=== PATIENT | female | born 1940 | race Caucasian/White ===

== ENCOUNTER 2019-06-06 10:08 | Outpatient (CLI) | payer OTHER, SELFPAY ==
--- NOTE | 2019-06-06 10:24 | ECHO_ITS ---
Patient Info Name: Sapna Parra Age: 78 years : 1940 Gender: Female Ht: 66 in Wt: 160 lbs BSA: 1.85 m2 HR: 71 bpm BP: 154 / 76 mmHg Technical Quality: Poor Exam Date: 06/06/2019 10:28 AM Exam Location: [facility] Patient Status: Outpatient Admit Date: 06/06/2019 Staff Ordering Physician: Pat Tipton MD [employer] Customer Service: Lamar Andres RDCS Attending Provider: Pat Tipton MD Referring Physician: Saeed THURSTON; Exam Type: CA echo dop color flow w con Study Info Indications R94.31 - Abnormal electrocardiogram ECG EKG Strain analysis performed. Complete two-dimensional, color flow and Doppler transthoracic echocardiogram is performed with contrast to opacify the left ventrical and to improve the deliniation of the left ventrical endocarial boarders. Contrast/Agitated Saline Contrast/Ag. Saline: Definity Amount: 10.00 ml IV Access Condition: patent with no signs of infiltration New IV Access: Antecubital Space and Left Site Condition: No extravasation and Site dressing applied History/Risk Factors Hypertension: No Dyslipidemia: No Congenital Heart Disease (CHD): No Peripheral Arterial Disease (PAD): No Myocardial Infarction (MD): No Chronic Lung Disease: No Obesity: No Renal Disease: No Coronary Artery Disease (CAD) No Congestive Heart Failure (CHF): No Cardiomyopathy/LV Systolic Dysfunction: No Diabetes Mellitus: No COPD: No Tobacco Use: Never Cerebrovascular Disease: No Family History: Coronary Artery Disease DVT Treatment: Apixaban Deep Vein Thrombosis (DVT): None Dialysis: None Frailty Scale (CSHA): 3: Managing Well Cardiac Arrest: No Prior Interventions Pacemaker: No PCI: No CABG: No Valve Surgery: No ICD: No PV Intervention: None Heart Transplant: No Summary 1. Technically suboptimal study due to poor sonographic images. Therefore, cannot assess regional wall motion abnormality. 2. Left ventricular chamber dimension is moderately enlarged. 3. Definity contrast administered did not improve wall motion interpretation. 4. Left ventricular systolic function is moderately reduced, estimated at 35-40%. 5. There is moderately increased left ventricular wall thickness. 6. The left ventricular diastolic function is abnormal. 7. E/e' 22 is elevated. 8. Left atrial chamber dimension is moderately enlarged. 9. Right atrial chamber dimension is moderately enlarged. 10. There is mild aortic valve sclerosis. 11. There is mild tricuspid valve regurgitation. 12. No pulmonary hypertension, estimated pulmonary arterial systolic pressure is 33 mmHg. Left Ventricle E/e' 22 is elevated. Technically suboptimal study due to poor sonographic images. Therefore, cannot assess regional wall motion abnormality. Definity contrast administered did not improve wall motion interpretation. Left ventricular chamber dimension is moderately enlarged. Left ventricular systolic function is moderately reduced, estimated at 35-40%. There is moderately increased left ventricular wall thickness. The left ventricular diastolic function is abnormal. Right Ventricle Right ventricular chamber dimension is normal. Right ventricular systolic function is normal. Left Atria Left atrial chamber dimension is moderately enlarged. Right Atria Right atrial chamber dimension is moderately enlarged. Aortic V
== END 2019-06-06 10:09 | disposition home or self-care (01) ==
LOC: CHSIMG 10:10
PROVIDERS: PCP Internal Medicine; Visit Provider Internal Medicine
DX: R94.31 Abnormal electrocardiogram [ECG] [EKG] (principal)
CPT/HCPCS: C8929

== ENCOUNTER 2019-07-09 11:02 | Outpatient (CLI) | payer OTHER, SELFPAY ==
--- NOTE | 2019-07-09 13:45 | EST_ITS ---
Patient Info Name: Sapna Parra Age: 79 years : 1940 Gender: Female Ht: 66 in Wt: 163 lbs BSA: 1.87 m2 Exam Date: 07/09/2019 12:28 PM Exam Location: [facility] Patient Status: Outpatient Admit Date: 07/09/2019 Staff Ordering Physician: Ameya Sheppard DO Attending Provider: Ameya Sheppard DO Exam Type: CA stress sabina w NM History/Risk Factors Hypertension: No Dyslipidemia: No Congenital Heart Disease (CHD): No Peripheral Arterial Disease (PAD): No Myocardial Infarction (TX): No Chronic Lung Disease: No Obesity: No Renal Disease: No Coronary Artery Disease (CAD) No Congestive Heart Failure (CHF): No Cardiomyopathy/LV Systolic Dysfunction: No Diabetes Mellitus: No COPD: No Tobacco Use: Never Cerebrovascular Disease: No Family History: Coronary Artery Disease DVT Treatment: Apixaban Deep Vein Thrombosis (DVT): None Dialysis: None Frailty Scale (CSHA): 3: Managing Well Cardiac Arrest: No Prior Interventions Pacemaker: No PCI: No CABG: No Valve Surgery: No ICD: No PV Intervention: None Heart Transplant: No Summary 1. 1. Negative lexiscan stress test for ischemic ST changes by ECG criteria. 2. 2. Baseline hypertension. 3. 3. Nuclear scan to follow and will be reported separately. Please correlate with it. 4. 4. Patient informed of the above results. Protocol: LEXISCAN Stress ECG Details Stage: REST Duration (min): 1 min : 17 sec HR (bpm): 86 SBP (mmHg): 149 DBP (mmHg): 100 Stage: REST Duration (min): 7 min : 44 sec HR (bpm): 84 SBP (mmHg): 149 DBP (mmHg): 100 Stage: STAGE 1 Duration (min): 0 min : 8 sec HR (bpm): 95 SBP (mmHg): 149 DBP (mmHg): 100 Stage: RECOVERY Duration (min): 0 min : 51 sec HR (bpm): 94 SBP (mmHg): 149 DBP (mmHg): 100 Stage: RECOVERY Duration (min): 1 min : 51 sec HR (bpm): 96 SBP (mmHg): 157 DBP (mmHg): 99 Stage: RECOVERY Duration (min): 2 min : 51 sec HR (bpm): 103 SBP (mmHg): 166 DBP (mmHg): 99 Stage: RECOVERY Duration (min): 3 min : 51 sec HR (bpm): 102 SBP (mmHg): 167 DBP (mmHg): 97 Stage: RECOVERY Duration (min): 4 min : 51 sec HR (bpm): 108 SBP (mmHg): 178 DBP (mmHg): 99 Stage: RECOVERY Duration (min): 5 min : 51 sec HR (bpm): 101 SBP (mmHg): 169 DBP (mmHg): 99 Stage: RECOVERY Duration (min): 6 min : 7 sec HR (bpm): 94 SBP (mmHg): 169 DBP (mmHg): 99 Rest HR: 84 bpm Peak HR: 115 bpm Rest Sys BP: 149 mmHg Peak Sys BP: 178 mmHg Max Pred HR: 143 bpm % Max Pred HR: 80 % Target HR: 122 bpm Max RPP: 20,470 bpm*mmHg Termination Reason: Completed protocol Cardiac Symptoms: Shortness of breath Total Time: 0 min : 8 sec Rest Conteh BP: 100 mmHg Peak Conteh BP: 99 mmHg Total Dose: 0.4 mg Resting ECG Atrial fibrillation. Stress ECG No ST changes. Arrhythmias None. Report Signatures Electronically carlos
== END 2019-07-09 11:03 | disposition home or self-care (01) ==
PROVIDERS: PCP Internal Medicine; Visit Provider Internal Medicine Cardiovascular Disease
DX: I50.20 Unspecified systolic (congestive) heart failure (principal)
CPT/HCPCS: 78452; 93017; A9502; J2785

== ENCOUNTER 2019-08-02 07:46 | Outpatient (CLI) | payer OTHER, SELFPAY ==
--- NOTE | 2019-08-02 07:52 | ECHO_ITS ---
Patient Info Name: Sapna Parra Age: 79 years : 1940 Gender: Female Ht: 66 in Wt: 160 lbs BSA: 1.85 m2 HR: 114 bpm BP: 167 / 88 mmHg Heart Rhythm: Sinus Arrhythmia Technical Quality: Fair Exam Date: 08/02/2019 6:54 AM Exam Location: [facility] Patient Status: Outpatient Admit Date: 08/02/2019 Staff Ordering Physician: Ameya Sheppard DO [employer] Production Manager: Lamar Andres RDCS Attending Provider: Ameya Sheppard DO Referring Physician: Silver NEAL; Exam Type: CA echo dop color flow w con Study Info Indications I50.20 - Unspecified systolic (congestive) heart failure Strain analysis performed. Complete two-dimensional, color flow and Doppler transthoracic echocardiogram is performed with contrast to opacify the left ventrical and to improve the deliniation of the left ventrical endocarial boarders. Contrast/Agitated Saline Contrast/Ag. Saline: Definity Amount: 7.00 ml Existing IV Access: No IV Access Condition: patent with no signs of infiltration New IV Access: Dorsum of Hand and Right Site Condition: No extravasation, Site dressing applied and IV removed History/Risk Factors Hypertension: Yes Dyslipidemia: No Congenital Heart Disease (CHD): No Peripheral Arterial Disease (PAD): No Myocardial Infarction (AR): No Chronic Lung Disease: No Obesity: No Renal Disease: No Coronary Artery Disease (CAD) No Congestive Heart Failure (CHF): Hx CHF Cardiomyopathy/LV Systolic Dysfunction: No Diabetes Mellitus: No COPD: No Tobacco Use: Never Cerebrovascular Disease: No Family History: Coronary Artery Disease DVT Treatment: Apixaban Deep Vein Thrombosis (DVT): None Dialysis: None Frailty Scale (CSHA): 3: Managing Well Cardiac Arrest: No Prior Interventions Pacemaker: No PCI: No CABG: No Valve Surgery: No ICD: No PV Intervention: None Heart Transplant: No Summary 1. Left ventricular chamber dimension is mildly enlarged. 2. Definity contrast administered improved wall motion interpretation. 3. Left ventricular systolic function is normal, estimated at 55-60%. 4. There is moderately increased left ventricular wall thickness. 5. The left ventricular diastolic function is abnormal. 6. E/e' 16 is elevated. 7. Left atrial chamber dimension is moderately enlarged. 8. Right atrial chamber dimension is mildly enlarged. 9. There is mild aortic valve sclerosis. 10. There is trace mitral valve regurgitation. 11. There is mild tricuspid valve regurgitation. 12. No pulmonary hypertension, estimated pulmonary arterial systolic pressure is 36 mmHg. 13. There is trace pulmonic regurgitation. Left Ventricle E/e' 16 is elevated. Definity contrast administered improved wall motion interpretation. Left ventricular chamber dimension is mildly enlarged. Left ventricular systolic function is normal, estimated at 55-60%. There is moderately increased left ventricular wall thickness. The left ventricular diastolic function is abnormal. Right Ventricle Right ventricular chamber dimension is normal. Right ventricular systolic function is normal. Left Atria Left atrial chamber dimension is moderately enlarged. Right Atria Right atrial chamber dimension is mildly enlarged. Aortic Valve The aortic valve is trileaflet. There is mild aortic valve sclerosis. There is no aortic valve stenosis. The
[2019-08-02 09:51] LABS: Hematocrit 40.8 % (35.0-42.0); Hemoglobin 13.5 g/dL (11.7-13.8)
== END 2019-08-02 07:47 | disposition home or self-care (01) ==
PROVIDERS: PCP Internal Medicine; Visit Provider Internal Medicine Cardiovascular Disease
DX: I50.20 Unspecified systolic (congestive) heart failure (principal); K92.1 Melena
CPT/HCPCS: 36415; 85014; 85018; C8929

== ENCOUNTER 2019-08-17 06:31 | Outpatient (CLI) | payer OTHER, SELFPAY ==
[2019-08-17 17:06] LABS: SARS-CoV-2 RNA PCR Negative
== END 2019-08-17 06:32 | disposition home or self-care (01) ==
LOC: ANHCOVIDDT 06:31
PROVIDERS: PCP Internal Medicine; Visit Provider Surgery
DX: Z01.818 Encounter for other preprocedural examination (principal); Z11.59 Encounter for screening for other viral diseases
CPT/HCPCS: 87635; C9803; U0003

== ENCOUNTER 2019-08-20 01:28 | Day surgery (SDC) | payer OTHER, SELFPAY ==
[2019-08-15 11:29] VITALS: BMI 25.8
[2019-08-20 11:19] VITALS: BP 158/97; PULSE 90; RESP 20; TEMP 36.4; O2SAT 98
--- NOTE | 2019-08-20 11:27 | WPDANESEPPF ---
Anes - Initial Pre Proc Eval Procedure: Operation Date: 08/20/19 12:30 Proposed Procedures p Colonoscopy - Jac Rubio DO Date/Time: 08/20/19 11:27 Surgeon: Jac Rubio DO Pre Op Diagnosis: Melena Patient Data Age: 79 Gender: F Height: 5 ft 6 in Weight: 73.1 kg Last Vital Signs Temp 36.4 C L 08/20/19 11:19 Pulse 90 08/20/19 11:19 Resp 20 08/20/19 11:19 BP 158/97 H 08/20/19 11:19 Pulse Ox 98 08/20/19 11:19 Allergies Allergy/AdvReac Type Severity Reaction Status Date / Time No Known Allergies Allergy Verified 08/20/19 11:15 Home Medications Medication Instructions Recorded Confirmed Type calcium carbonate 600 mg calcium 600 mg PO DAILY 06/13/19 08/15/19 History (1,500 mg) tablet coenzyme Q10 10 mg capsule 10 mg PO ONCE 06/13/19 08/15/19 History metoprolol tartrate 25 mg tablet 25 mg PO BID tablet 06/13/19 08/15/19 History apixaban 5 mg tablet 5 mg PO BID 07/16/19 08/15/19 History aspirin 81 mg tablet,delayed 81 mg PO DAILY 07/16/19 08/15/19 History release cetirizine 10 mg capsule 10 mg PO DAILY 07/16/19 08/15/19 History lisinopril 2.5 mg tablet 2.5 mg PO DAILY 07/16/19 08/15/19 History omega-3 fatty acids 1,000 mg 1,000 mg PO DAILY 07/16/19 08/15/19 History capsule biotin-calcium carbonate [Biotin 1 tablet PO DAILY 08/15/19 08/15/19 History 100+10] omeprazole 20 mg PO DAILY 08/15/19 08/15/19 History Patient hx anesthesia problems: none Family hx anesthesia problems: none PMFSH Past Medical History Medical History Arthritis Palpitation Surgical History Surgical History History of breast implant History of foot surgery History of tubal ligation Family History Family History Father Heart disease Mother Alzheimer's dementia Grandparent Heart disease Social History Social History Smoking status: Never smoker Alcohol intake: current Anes - Eval Final PreProcedure Day of Procedure 08/20/19 11:27 Patient weight: normal Heart: irregular rhythm Lungs: clear to auscultation Airway: Mallampati scale class II Neurological: alert and oriented Last oral intake: >/= 8 hours ASA classification: III Emergent: no Anesthesia type and monitoring: general GIVS and standard monitoring Informed Consent: The patient's anesthetic plan and its attendant risks and benefits were discussed with the patient/family/POA. Questions were solicited and answers provided to the satisfaction of the patient/family/POA.
[2019-08-20] MEDS: LACTATED RINGERS 1,000 ML 150 ML IV CONT (11:32)
--- NOTE | 2019-08-20 12:20 | PM.IMHP ---
H&P: HPI History of Present Illness Chief complaint: Melena Narrative: Sapna Parra is a 79 year old female who presents for colonoscopy at the request of Dr. Tipton. She has never had a colonoscopy before. She had an episode of melena 4 months ago, but this resolved with antibiotics. She is on Eliquis for Afib. She denies family hx colon cancer. Review of Systems Review of Systems: All systems reviewed & are unremarkable except as noted in HPI and below PMFSH Past Medical History Medical History Arthritis Atrial fibrillation Palpitation Surgical History Surgical History History of breast implant History of foot surgery History of tubal ligation Family History Family History Father Heart disease Mother Alzheimer's dementia Grandparent Heart disease Social History Social History Smoking status: Never smoker Alcohol intake: current Meds Home Medications and Allergies Home Medications Medication Instructions Recorded Confirmed Type calcium carbonate 600 mg calcium 600 mg PO DAILY 06/13/19 08/15/19 History (1,500 mg) tablet coenzyme Q10 10 mg capsule 10 mg PO ONCE 06/13/19 08/15/19 History metoprolol tartrate 25 mg tablet 25 mg PO BID tablet 06/13/19 08/15/19 History apixaban 5 mg tablet 5 mg PO BID 07/16/19 08/15/19 History aspirin 81 mg tablet,delayed 81 mg PO DAILY 07/16/19 08/15/19 History release cetirizine 10 mg capsule 10 mg PO DAILY 07/16/19 08/15/19 History lisinopril 2.5 mg tablet 2.5 mg PO DAILY 07/16/19 08/15/19 History omega-3 fatty acids 1,000 mg 1,000 mg PO DAILY 07/16/19 08/15/19 History capsule biotin-calcium carbonate [Biotin 1 tablet PO DAILY 08/15/19 08/15/19 History 100+10] omeprazole 20 mg PO DAILY 08/15/19 08/15/19 History Allergies Allergy/AdvReac Type Severity Reaction Status Date / Time No Known Allergies Allergy Verified 08/20/19 11:15 Vital Signs Vital Signs - 24 hr 08/20/19 11:19 Temperature 36.4 C L Pulse Rate 90 Respiratory Rate 20 Blood Pressure 158/97 H Pulse Oximetry 98 Exam Const: General: alert; No acute distress Orientation/consciousness: patient oriented x3 Limitations: no limitations HENMT: Head: normocephalic and atraumatic Ears: hearing grossly normal bilaterally General nose exam: Normal external nose present and Normal nares present Mouth: Yes Normal oral and palatal mucosa present and Yes moist mucous membranes Eyes: General: appearance normal, both eyes and all related structures Conjunctivae: conjunctivae normal Sclera: sclerae normal Pupils: Equal, round and reactive pupils present EOM: EOMs intact bilaterally Neck: Neck: normal visual inspection, full ROM, no lymphadenopathy, supple and no JVD Lymphatic: no lymphadenopathy noted Chest: Chest palpation & inspection: normal inspection of the chest Resp: Effort & Inspection: normal respiratory effort and able to speak in complete sentences Auscultation: clear to auscultation bilaterally Percussion: percussion normal Cardio: Jugular venous distension: no JVD Rate: regular rate Rhythm: regular rhythm Heart sounds: S1 normal heart sound present and S2 normal heart sound present Peripheral pulses: Peripheral pulses 2+ throughout GI: Inspection: normal to inspection GI Palp: No abdominal tenderness, Yes Soft to palpation, No Guarding due to palpation present (GI), No Hernia present and No Rebound tenderness present Percussion: Yes normal to percussion Auscultation: normal bowel sounds : General: Yes no CVA tenderness Back/Spine/Pelvis: Back: no CVA tenderness Skin: General skin exam: normal color and dry skin Neuro: General: patient oriented x3, gait normal, moves all extremities, no focal motor deficits and CN's II-XI intac
[2019-08-20 12:59] VITALS: BP 138/94; PULSE 76; RESP 24; O2SAT 98
[2019-08-20 13:09] VITALS: BP 161/92; PULSE 77; RESP 26; O2SAT 99
[2019-08-20 13:19] VITALS: BP 174/86; PULSE 70; RESP 25; O2SAT 99
== END 2019-08-20 14:11 | disposition home or self-care (01) ==
PROVIDERS: PCP Internal Medicine; Visit Provider Surgery
PROC: 0DJD8ZZ Inspection of Lower Intestinal Tract, Via Natural or Artificial Opening Endoscopic (ICD-10-PCS; CPT 45378; principal; 2019-08-20 12:30)
DX: K92.1 Melena (principal); D12.0 Benign neoplasm of cecum; D12.4 Benign neoplasm of descending colon; K57.30 Diverticulosis of large intestine without perforation or abscess without bleeding; M19.90 Unspecified osteoarthritis, unspecified site; I48.91 Unspecified atrial fibrillation
CPT/HCPCS: 45385; 88305; J7120

== ENCOUNTER 2019-10-18 08:02 | Outpatient (CLI) | payer OTHER, SELFPAY ==
[2019-10-18 08:55] LABS: Cholesterol 231 mg/dL (0-200); HDL Direct 64 mg/dL (40-60); LDL Cholesterol Calculated 145 mg/dL (<130); Triglycerides 111 mg/dL (0-150)
== END 2019-10-18 08:03 | disposition home or self-care (01) ==
LOC: CHSLAB 08:04
PROVIDERS: PCP Internal Medicine; Visit Provider Internal Medicine Cardiovascular Disease
DX: I50.20 Unspecified systolic (congestive) heart failure (principal)
CPT/HCPCS: 36415; 80061

== ENCOUNTER 2020-02-07 07:59 | Outpatient (CLI) | payer OTHER, SELFPAY ==
[2020-02-07 08:27] LABS: Basophils Absolute Auto 0.05 K/mm3 (0.00-0.10); Basophils Percent Auto 0.7 % (0.0-1.0); Eosinophils Absolute Auto 0.23 K/mm3 (0.02-0.50); Eosinophils Percent Auto 3.1 % (1.0-6.0); Hematocrit 43.6 % (35.0-42.0); Hemoglobin 13.8 g/dL (11.7-13.8); Immature Granulocyte Absolute 0.02 K/mm3 (0.00-0.00); Immature Granulocyte Percent A 0.3 % (0.0-0.0); Lymphocytes Absolute Auto 2.01 K/mm3 (1.10-4.50); Lymphocytes Percent Auto 26.8 % (18.0-42.0); Mean Corpuscular HGB Conc 31.7 g/dL (32.0-36.0); Mean Corpuscular Hemoglobin 29.4 pg (27.0-31.0); Mean Corpuscular Volume 92.8 fL (78.0-102.0); Mean Platelet Volume 9.7 fl (9.2-11.8); Monocytes Absolute Auto 0.54 K/mm3 (0.10-0.90); Monocytes Percent Auto 7.2 % (2.0-11.0); Neutrophils Absolute Auto 4.7 K/mm3 (1.7-7.2); Neutrophils Percent Auto 61.9 % (50.0-70.0); Platelet Count Result 316 K/mm3 (150-420); Red Cell Distribution Width 14.6 % (11.6-14.4); White Blood Count 7.5 K/mm3 (4.8-10.8)
[2020-02-07 08:33] LABS: Add Urine Microscopic? YES; Appearance Urine Sl Cloudy (Clear); Bilirubin Urine Negative (Negative); Blood Urine Negative (Negative); Color Urine Yellow (Yellow); Glucose Urine UA Negative (Negative); Ketones Urine Negative (Negative); Leukocyte Esterase Ur 1+ LEU/UL (Negative); Nitrate Urine Positive (Negative); Protein Urine Negative (Negative); Specific Grav Ur 1.015 (1.010-1.020); Urobilinogen Urine 0.2 mg/dL (0.2-1.0)
[2020-02-07 08:39] LABS: RBC Urine 0-2 /hpf (0-2); WBC Urine 31-50 /hpf (0-3)
[2020-02-07 08:40] LABS: Bacteria Urine 4+ /hpf; Squamous Epithelial Cell Urine Few /hpf (Few)
[2020-02-07 09:30] LABS: Alanine Aminotransferase 22 U/L (14-59); Albumin Level 3.8 g/dL (3.4-5.0); Alkaline Phosphatase 63 U/L (46-116); Anion Gap 9 mmol/L (8-16); Aspartate Amino Transferase 16 U/L (15-37); Bilirubin,Total 0.6 mg/dL (0.00-1.00); Blood Urea Nitrogen 17 mg/dL (7-18); Calcium 9.3 mg/dL (8.5-10.1); Carbon Dioxide 30 mmol/L (21-32); Chloride 105 mmol/L (98-108); Cholesterol 221 mg/dL (0-200); Estimated Glomerular Filt Rate > 60; Glucose 104 mg/dL (70-99); HDL Direct 66 mg/dL (40-60); LDL Cholesterol Calculated 138 mg/dL (<130); Osmolality Calculated 299 mOsm/kg (285-295); Potassium 4.6 mmol/L (3.5-5.1); Sodium 144 mmol/L (136-145); Total Protein 7.3 g/dL (6.4-8.2); Triglycerides 84 mg/dL (0-150)
== END 2020-02-07 08:00 | disposition home or self-care (01) ==
PROVIDERS: PCP Internal Medicine; Visit Provider Internal Medicine
DX: I10 Essential (primary) hypertension (principal); R82.90 Unspecified abnormal findings in urine
CPT/HCPCS: 36415; 80053; 80061; 81001; 85025; 87077; 87086; 87088; 87186

== ENCOUNTER 2020-02-12 11:20 | Outpatient (CLI) | payer OTHER, SELFPAY ==
--- NOTE | ~2020-02-12 | MM_ITS ---
EXAMINATION: MM scrn lizzy implant BI w noa HISTORY: Screening mammogram, family history of breast cancer in her mother. TECHNIQUE: Craniocaudal and mediolateral oblique 3-D tomosynthesis images with implant displacement a nd synthetic 2-D images were generated. Craniocaudal and mediolateral oblique views of the breasts wi thout implant displacement were obtained using full field digital mammography. CAD analysis was submi tted and interpreted. COMPARISON: 01/22/2019, 01/20/2018, 01/12/2017 BREAST PARENCHYMAL COMPOSITION: There are scattered areas of fibroglandular density. FINDINGS: There is no evidence of suspicious mass, calcification, or architectural distortion to sugg est malignancy in either breast. There has been no suspicious interval change. IMPRESSION: 1. No mammographic evidence of malignancy. 2. Recommend routine screening mammography in one year. BI-RADS Category 1: Negative Reviewed, dictated and finalized at location A. T THINNER MACHINE OPERATOR
== END 2020-02-12 11:21 | disposition home or self-care (01) ==
LOC: CHSIMG 11:22
PROVIDERS: PCP Internal Medicine; Visit Provider Internal Medicine
DX: Z12.31 Encounter for screening mammogram for malignant neoplasm of breast (principal)
CPT/HCPCS: 77063; 77067

== ENCOUNTER 2020-08-18 09:58 | Outpatient (CLI) | payer OTHER, SELFPAY ==
[2020-08-18 10:31] LABS: Basophils Absolute Auto 0.05 K/mm3 (0.00-0.10); Basophils Percent Auto 0.7 % (0.0-1.0); Eosinophils Absolute Auto 0.23 K/mm3 (0.02-0.50); Eosinophils Percent Auto 3.3 % (1.0-6.0); Hemoglobin 12.5 g/dL (11.7-13.8); Immature Granulocyte Absolute 0.03 K/mm3 (0.00-0.00); Immature Granulocyte Percent A 0.4 % (0.0-0.0); Lymphocytes Absolute Auto 1.99 K/mm3 (1.10-4.50); Lymphocytes Percent Auto 28.8 % (18.0-42.0); Mean Corpuscular HGB Conc 32.1 g/dL (32.0-36.0); Mean Corpuscular Hemoglobin 27.9 pg (27.0-31.0); Mean Corpuscular Volume 87.1 fL (78.0-102.0); Monocytes Absolute Auto 0.64 K/mm3 (0.10-0.90); Monocytes Percent Auto 9.2 % (2.0-11.0); Neutrophils Percent Auto 57.6 % (50.0-70.0); Platelet Count Result 331 K/mm3 (150-420); Red Blood Count 4.48 M/mm3 (4.20-5.40); Red Cell Distribution Width 15.4 % (11.6-14.4); White Blood Count 6.9 K/mm3 (4.8-10.8)
[2020-08-18 11:27] LABS: Alanine Aminotransferase 22 U/L (14-59); Albumin Level 3.6 g/dL (3.4-5.0); Alkaline Phosphatase 69 U/L (46-116); Anion Gap 7 mmol/L (8-16); Aspartate Amino Transferase 15 U/L (15-37); Bilirubin,Total 0.5 mg/dL (0.00-1.00); Blood Urea Nitrogen 17 mg/dL (7-18); Calcium 9.1 mg/dL (8.5-10.1); Carbon Dioxide 30 mmol/L (21-32); Chloride 105 mmol/L (98-108); Cholesterol 214 mg/dL (0-200); Estimated Glomerular Filt Rate > 60; Glucose 87 mg/dL (70-99); HDL Direct 57 mg/dL (40-60); LDL Cholesterol Calculated 134 mg/dL (<130); Osmolality Calculated 294 mOsm/kg (285-295); Potassium 4.6 mmol/L (3.5-5.1); Sodium 142 mmol/L (136-145); Total Protein 6.7 g/dL (6.4-8.2); Triglycerides 114 mg/dL (0-150)
== END 2020-08-18 09:59 | disposition home or self-care (01) ==
LOC: CHSLAB 10:06
PROVIDERS: PCP Internal Medicine; Visit Provider Internal Medicine
DX: E78.5 Hyperlipidemia, unspecified (principal); Z00.00 Encounter for general adult medical examination without abnormal findings
CPT/HCPCS: 36415; 80053; 80061; 85025

== ENCOUNTER 2020-08-31 11:43 | Outpatient (NON) | payer OTHER, SELFPAY ==
[2020-08-31 11:54] LABS: Add Urine Microscopic? YES; Appearance Urine Sl Cloudy (Clear); Bilirubin Urine Negative (Negative); Blood Urine Negative (Negative); Color Urine Yellow (Yellow); Glucose Urine UA Negative (Negative); Ketones Urine Negative (Negative); Leukocyte Esterase Ur 2+ LEU/UL (Negative); Nitrate Urine Positive (Negative); Protein Urine Negative (Negative); Specific Grav Ur 1.015 (1.010-1.020); Urobilinogen Urine 0.2 mg/dL (0.2-1.0); pH Urine 5.5 (5.0-8.0)
[2020-08-31 11:59] LABS: Bacteria Urine 4+ /hpf; RBC Urine 0-2 /hpf (0-2); Squamous Epithelial Cell Urine Few /hpf (Few); WBC Urine 16-20 /hpf (0-3)
== END 2020-08-31 11:44 | disposition home or self-care (01) ==
LOC: CHSLAB 11:45
PROVIDERS: PCP Internal Medicine; Visit Provider Internal Medicine
DX: Z00.00 Encounter for general adult medical examination without abnormal findings (principal); R82.90 Unspecified abnormal findings in urine
CPT/HCPCS: 81001; 87077; 87086; 87088; 87186

== ENCOUNTER 2020-11-30 23:20 | Emergency (ER) | payer OTHER, SELFPAY ==
--- NOTE | ~2020-11-30 | CT_ITS ---
EXAMINATION: CT brain wo con INDICATION: Altered mental status COMPARISON: None TECHNIQUE: Standard unenhanced head CT. The dose-length product (DLP) was 681.00 mGy-cm. The mA was a djusted according to patient size. Iterative reconstruction technique was employed. FINDINGS: There is a large acute right subdural hematoma which measures up to 1.6 cm in thickness. Th ere are 8 mm of [id number] midline shift. A small amount of parafalcine and right-sided tentorial subdural hematoma are also noted. There is no acute intraparenchymal hemorrhage. No evidence of mass lesion. No evidence of acute infarction. Intracranial calcified cerebral atherosclerosis is noted. Th e orbits and soft tissues are unremarkable. The visualized sinuses and mastoid air cells are well aer ated. IMPRESSION: 1. Acute right subdural hematoma with [id number] midline shift. Neurosurgical evaluation is recomm ended. These findings and recommendations were communicated to the Emergency Department at 2347 hours on 11/30/2020 by the [employer] Radiologist. Reviewed, dictated and finalized at location A. IMPRESSION: 1. Acute right subdural hematoma with [id number] midline shift. Neurosurgica l evaluation is recommended. These findings and recommendations were communicat ed to the Emergency Department at 2347 hours on 11/30/2020 by the [employer] Radiol ogist.
--- NOTE | ~2020-11-30 | XR_ITS ---
EXAMINATION: XR chest ET placement INDICATION: Endotracheal tube placement TECHNIQUE: Portable AP chest at 0052 hours COMPARISON: 11/30/2020 FINDINGS: An endotracheal tube has been inserted which ends 2.3 cm above the alek. There is a perip heral opacity of the right lower lung zone. No pleural effusion or pneumothorax is identified. Cardio megaly is noted. IMPRESSION: 1. Endotracheal tube approximately 2.3 cm above the alek. 2. Peripheral opacity of the right lower lung zone which could reflect atelectasis, pneumonia, or les s likely pulmonary infarct. Reviewed, dictated and finalized at location A. IMPRESSION: 1. Endotracheal tube approximately 2.3 cm above the alek. 2. Peripheral opacity of the right lower lung zone which could reflect atelecta sis, pneumonia, or less likely pulmonary infarct.
--- NOTE | ~2020-11-30 | XR_ITS ---
EXAMINATION: XR chest 1V portable INDICATION: Unresponsive patient, possible CVA TECHNIQUE: Portable AP chest at 2344 hours COMPARISON: None available FINDINGS: The patient is rotated. No acute airspace opacities are identified. Cardiomegaly is noted. There is no pleural effusion or pneumothorax. IMPRESSION: 1. Cardiomegaly. Reviewed, dictated and finalized at location A. IMPRESSION: 1. Cardiomegaly.
[2020-11-30 23:20] VITALS: BP 154/89; PULSE 114; RESP 20; TEMP 36.6; O2SAT 92
--- NOTE | 2020-11-30 23:24 | ECG_ITS ---
Measurements Intervals [place] Rate: 112 P: CT: 0 QRS: -10 QRSD: 103 T: 64 QT: 350 QTc: 479 Interpretive Statements ATRIAL FIBRILLATION WITH RAPID VENTRICULAR RESPONSE CONSIDER INFERIOR INFARCT, AGE INDETERMINATE NONSPECIFIC ST & T-WAVE ABNORMALITY- ANTEROLAT/HIGH LAT LEADS BASELINE ARTIFACT- I, II, III, AVR, AVL, AVF ABNORMAL ECG Electronically Signed On 12-01-2020 8:07:55 CDT by Ameya Sheppard D.O.
[2020-11-30 23:30] VITALS: O2SAT 91
--- NOTE | 2020-11-30 23:43 | ED.NEUROSD ---
HPI - Neuro Symptoms/Deficit General Chief Complaint: Suspected CVA Stated Complaint: UNRESPONSIVE Time Seen by Provider: 11/30/20 23:24 Source: family and EMS Mode of arrival: EMS Limitations: altered mental status History of Present Illness HPI Narrative: 80-year-old woman with a history of atrial fibrillation and who takes apixaban brought to the emergency department by EMS after her son found her unresponsive, incontinent and sweaty. He saw her approximately 5:00 p.m. and thought she was sleeping. He tackled her face with a feather and she told him to stop it and swatted the feather away. He returned approximately 930 and found her slid down in her chair, incontinent and sweaty. She was unresponsive. Onset (ago): hour(s) Timing confirmed by: family member Location: altered History of same: No Severity: severe Relieving factors: none Exacerbating factors: none Context: found down On Anticoagulants: Yes Treatments Prior to Arrival: none Related Data Home Medications Medication Instructions Recorded Confirmed apixaban [Eliquis] 5 mg PO BID 12/01/20 12/01/20 cetirizine 10 mg PO DAILY 12/01/20 12/01/20 ipratropium bromide 2 spray INTRANASAL BID 12/01/20 12/01/20 lisinopril 2.5 mg PO DAILY 12/01/20 12/01/20 metoprolol tartrate 50 mg PO Q12H 12/01/20 12/01/20 omeprazole 20 mg PO DAILY 12/01/20 12/01/20 Allergies Allergy/AdvReac Type Severity Reaction Status Date / Time No Known Allergies Allergy Verified 12/01/20 00:17 Review of Systems Review of Systems: ROS unobtainable: Yes unobtainable due to mental status [facility] Past Medical History Medical History (Updated 12/01/20 @ 01:21 by Juan Antonio Epstein MD) Atrial fibrillation Chronic anticoagulation GERD (gastroesophageal reflux disease) Hypertension Social History Social History (Updated 12/01/20 @ 01:01 by Juan Antonio Epstein MD) Smoking status: Never smoker Alcohol use details: rarely Substance use: never Living arrangements: alone Exam Const: General: patient obtunded and other Nutritional Appearance: overweight Orientation/consciousness: patient obtunded Limitations: altered mental status HENMT: Head: normal to inspection and No palpable skull fracture present Mouth: Yes Normal oral and palatal mucosa present Throat: posterior oropharynx normal Eyes: Alignment and Position: position abnormal Eyelids: eyelids normal Conjunctivae: conjunctivae normal Pupils: Pupils anisocoria right pupil size greater than left, Dilated pupils on the left, Fixed pupils on the left and Other pupil findings ( right pupil is midposition and sluggish) Resp: Effort & Inspection: normal respiratory effort Auscultation: clear to auscultation bilaterally, no rales, no rhonchi and no wheezes Cardio: Rate: tachycardic Rhythm: abnormal rhythm irregularly irregular Heart sounds: no murmurs Other: distal pulses are palpable. GI: GI Palp: Yes Soft to palpation and No Tenderness to palpation present (GI) Auscultation: normal bowel sounds Skin: General skin exam: no rashes or lesions noted and pallor Lesions: no lesions Rashes: no rashes Trauma: no lacerations or abrasions Wounds: no wounds Hair: normal Neuro: General: moves all extremities Cranial nerves: Yes facial symmetry Speech: dysarthria ( whisperinig) Gait exam (Neuro): Unable to assess gait Motor exam (neuro): Other motor observations present ( moves lower extremities to command, can lift arms against gravity.) Sensory Exam: other ( States month and day of , remainder is unintelligible.) Extrem: General: normal to inspection, full ROM, capillary refill normal and no pedal edema Left lower extremity: lower leg Details: other ( Medial bruising) Psych: Appearance: disheveled Affect: Anxious affect present Course Course Emergency Course: Discussed findings with Dr. Henning who recommended that she have a reversal agent such as Kcentra and 1 mg per kg of mannitol. Given the severity of he
--- NOTE | 2020-11-30 23:52 | PC.NURSE ---
Juan Miguel notified for transfer to Neuro per son request. Transfer line spoke to ERP Dr Epstein, awaiting call back from Neuro.
--- NOTE | 2020-12-01 00:08 | PC.NURSE ---
Dr Epstein spoke to accepting at [facility], awaiting call back for bed.
--- NOTE | 2020-12-01 00:30 | PC.NURSE ---
Pt prepared for intubation, ARCH placed on standby.
[2020-12-01 00:31] LABS: Alanine Aminotransferase 24 U/L (14-59); Albumin Level 3.7 g/dL (3.4-5.0); Alkaline Phosphatase 56 U/L (46-116); Anion Gap 17 mmol/L (8-16); Aspartate Amino Transferase 28 U/L (15-37); Blood Urea Nitrogen 49 mg/dL (7-18); Carbon Dioxide 20 mmol/L (21-32); Chloride 106 mmol/L (98-108); Estimated CRCL calculation 56 ml/min; Estimated Glomerular Filt Rate > 60; Glucose 127 mg/dL (70-99); Osmolality Calculated 311 mOsm/kg (285-295); Potassium 4.6 mmol/L (3.5-5.1); Sodium 143 mmol/L (136-145); Total Protein 7.1 g/dL (6.4-8.2); Troponin I 51.1 ng/L (0.00-60.4)
--- NOTE | 2020-12-01 00:35 | PC.NURSE ---
Call back c room assignment from [place]. Pt to go to [facility] [id number]
[2020-12-01] MEDS: ATROPINE SULFATE 1 MG/ML VIAL 0.4 MG IV PUSH (00:39)
[2020-12-01] MEDS: MIDAZOLAM HCL (*CRX) 2 MG/2 ML VIAL 3 MG IV PUSH (00:41)
[2020-12-01] MEDS: ETOMIDATE 20 MG/10 ML AMPUL 24 MG IV PUSH (00:43)
[2020-12-01] MEDS: SUCCINYLCHOLINE CHLORIDE 20 MG/ML 10 ML VIAL 140 MG IV PUSH (00:44)
[2020-12-01 00:48] LABS: Calcium < 5.0 mg/dL (8.5-10.1)
[2020-12-01] MEDS: MANNITOL 20% 500 ML BAG 400 ML IVPB (00:52)
[2020-12-01] MEDS: CALCIUM CHLORIDE 1,000 MG/10 ML SYRINGE 1000 MG IV PUSH (00:55)
[2020-12-01] MEDS: VECURONIUM BROMIDE 10 MG VIAL IV PUSH (01:05)
[2020-12-01] MEDS: MIDAZOLAM HCL (*CRX) 2 MG/2 ML VIAL IV PUSH (01:07)
--- NOTE | 2020-12-01 01:20 | PC.NURSE ---
ARCH here for pt transfer, report given. Call placed to [facility]. Paperwork signed and consented per son for transfer.
[2020-12-01 01:22] LABS: Glucose Point of Care 117 mg/dl (65-105)
--- NOTE | 2020-12-01 01:22 | PC.NURSE ---
[id number] swab collected and sent to lab.
[2020-12-01 01:41] LABS: SARS-CoV-2 Ag Negative (Negative)
[2020-12-01 01:45] LABS: Appearance Urine Sl Cloudy (Clear); Color Urine Yellow (Yellow); pH Urine 5.5 (5.0-8.0)
[2020-12-01 01:46] LABS: Bilirubin Urine Negative (Negative); Blood Urine Trace-Intact (Negative); Glucose Urine UA Negative (Negative); Ketones Urine Trace (Negative); Nitrate Urine Negative (Negative); Protein Urine Trace (Negative); Specific Grav Ur 1.015 (1.010-1.020)
[2020-12-01 01:47] LABS: Add Urine Microscopic? YES; Leukocyte Esterase Ur 2+ LEU/UL (Negative); Squamous Epithelial Cell Urine Moderate /hpf (Few); Urobilinogen Urine 0.2 mg/dL (0.2-1.0); WBC Urine 21-30 /hpf (0-3)
[2020-12-01 01:48] LABS: Bacteria Urine 2+ /hpf; Mucus Urine Moderate /lpf
[2020-12-01] MEDS: LABETALOL HCL INJ 100 MG/20 ML VIAL 20 MG IV PUSH (01:55)
[2020-12-01 02:05] LABS: Amphetamine Screen Urine Negative (Negative); Barbiturate Screen Urine Negative (Negative); Benzodiazepines Screen Urine Negative (Negative); Cannabinoid Screen Urine Negative (Negative); Cocaine Screen Urine Negative (Negative); Methadone Screen Urine Negative (Negative); Opiate Screen Urine Negative (Negative); Phencyclidine Screen Urine Negative (Negative)
[2020-12-01 02:06] VITALS: BP 172/130; PULSE 130; RESP 20; O2SAT 97
== END 2020-12-01 02:14 | disposition short-term general hospital (02) ==
PROVIDERS: Emergency Provider Emergency Medicine; PCP Internal Medicine
DX: S06.5X9A Traumatic subdural hemorrhage with loss of consciousness of unspecified duration, initial encounter (principal); I48.20 Chronic atrial fibrillation, unspecified; Z79.01 Long term (current) use of anticoagulants; E83.51 Hypocalcemia; I95.89 Other hypotension; K21.9 Gastro-esophageal reflux disease without esophagitis; Z79.899 Other long term (current) drug therapy; Z20.822 Contact with and (suspected) exposure to COVID-19
CPT/HCPCS: 31500; 36415; 70450; 71045; 80053; 80307; 81001; 82948; 84484; 87077; 87086; 87088; 87186; 87426; 93005; 96365; 96375; 96376; 99285; C9803; J0330; J0461; J2250